=== PATIENT | female | born 1945 | race Caucasian/White ===

== ENCOUNTER 2022-02-16 08:54 | Outpatient (CLI) | payer MEDICARE | END 2022-02-16 08:55 | disposition home or self-care (01) | LOC: CSHMRI 08:54 | PROVIDERS: ATTEND Family Medicine | DX: M54.16 Radiculopathy, lumbar region (principal); R29.898 Other symptoms and signs involving the musculoskeletal system; S32.10XA Unspecified fracture of sacrum, initial encounter for closed fracture; M47.816 Spondylosis without myelopathy or radiculopathy, lumbar region; M48.061 Spinal stenosis, lumbar region without neurogenic claudication | CPT/HCPCS: 72148 ==

== ENCOUNTER 2022-02-26 09:48 | Outpatient (CLI) | payer MEDICARE | END 2022-02-26 09:49 | disposition home or self-care (01) | LOC: CSHMRI 09:48 | PROVIDERS: ATTEND Family Medicine | DX: M48.48XD Fatigue fracture of vertebra, sacral and sacrococcygeal region, subsequent encounter for fracture with routine healing (principal) | CPT/HCPCS: 72195 ==

== ENCOUNTER 2025-04-18 07:27 | Outpatient (CLI) | payer MEDICARE | END 2025-04-18 07:28 | disposition home or self-care (01) | LOC: CSHULT 07:27 | PROVIDERS: ATTEND Family Medicine | DX: R10.13 Epigastric pain (principal); M79.89 Other specified soft tissue disorders; Z90.710 Acquired absence of both cervix and uterus; Z90.5 Acquired absence of kidney | CPT/HCPCS: 76700; 76856 ==